=== PATIENT | male | born 1950 | race Caucasian/White ===

== ENCOUNTER 2016-07-20 16:51 | Emergency (ER) | payer BC, OTHER ==
[2016-07-20 17:06] VITALS: BP 139/67
[2016-07-20] MEDS ORDERED: Ondansetron 4 MG/2 ML SDV IVPUSH ONE (17:12)
[2016-07-20] MEDS ORDERED: Sodium Chloride 0.9% 10 ML Syringe FLUSH PRN (17:12)
[2016-07-20] MEDS ORDERED: Acetaminophen 325 MG Tab PO ONE (17:12)
[2016-07-20] MEDS ORDERED: Sodium Chloride 0.9% 1,000 ML IV ONE (17:12)
[2016-07-20] MEDS ORDERED: Sodium Chloride 0.9% 2.5 ML Syringe FLUSH PRN (17:12)
--- NOTE | 2016-07-20 17:16 | EDM.PDOC ---
ED HPI GENERAL MEDICAL PROBLEM - General Chief Complaint: Fever Stated Complaint: PT HAS FLU SYMPTOMS Time Seen by Provider: 07/20/16 17:00 - History of Present Illness INITIAL COMMENTS - FREE TEXT/NARRATIVE: HISTORY AND PHYSICAL: History of present illness: Patient is a 66-year-old male with a history of insulin requiring diabetes, hypertension and presents with complaints of 3 days of cough productive of phlegm which is white, bodyaches generalized malaise weakness and today one episode of vomiting. He has no shortness of breath or chest pain no runny nose or sore throat but feels like his throat is dry. There is no sinus congestion or drainage no flank pain or urinary issues and no abdominal pain or diarrhea. Patient has been eating and drinking but not his normal amount per his and he has been very fatigued and has exhibited generalized weakness. He is not lightheaded or dizzy and has not had any falls. Patient states he did not know that he had a fever until he came in to the ER. He has not felt chilly. Patient follows at [facility] but has not seen a physician for these symptoms but he did get his flu shot this year. Patient does not have any chronic pulmonary disease. Please note the patient states that his blood sugar was in the 270s last evening which is relatively high for him. Review of systems: As per history of present illness and below otherwise all systems reviewed and negative. Past medical history: As per history of present illness and as reviewed below otherwise noncontributory. Surgical history: As per history of present illness and as reviewed below otherwise noncontributory. Social history: No reported history of drug or alcohol abuse. Family history: As per history of present illness and as reviewed below otherwise noncontributory. Physical exam: General: Well-developed well-nourished male who has a loose cough heard in the ER but is nontoxic and speaking without breathlessness. Patient moves about the ED without distress. HEENT: Atraumatic, normocephalic, pupils reactive, negative for conjunctival pallor or scleral icterus, mucous membranes moist, throat clear, neck supple, nontender, trachea midline. No cervical adenopathy or nuchal rigidity Lungs: Clear to auscultation some diminished breath sounds in the bases but no work or breathing or sensory muscle use, breath sounds equal bilaterally, chest nontender. Heart: S1S2, regular, negative for clicks, rubs, or JVD. Abdomen: Soft, nondistended, nontender. Negative for masses or hepatosplenomegaly. Negative for costovertebral tenderness. Pelvis: Stable nontender. Genitourinary: Deferred. Rectal: Deferred. Extremities: Atraumatic, negative for cords or calf pain. Neurovascular unremarkable. No pedal edema Neuro: Awake, alert, oriented. Cranial nerves II through XII unremarkable. Cerebellum unremarkable. Motor and sensory unremarkable throughout. Exam nonfocal. Diagnostics: CBC CMP lactic acid influenza swab chest x-ray blood cultures if indicated Therapeutics: IV fluids Zofran O2 sat Discussed with patient and at bedside testing results and impress upon him the nature hydrated and try to eat to get strength. I also advised to followup at [facility] with his provider this week for reevaluation and further care. I will prescribe him a Z-Marcio which he states he has taken in the past for similar symptoms and has been successful. I advised him on reasons to return to the ER Impression: Upper respiratory tract illness, generalized weakness and fatigue Definitive disposition and diagnosis as appropriate pending reevaluation and review of above. - Related Data Allergies Allergy/AdvReac Type Severity Reaction Status Date / Time No Known Allergies Allergy Verified 07/20/16 17:03 Home Meds: Home Meds Insulin Aspart [NovoLOG] 8 unit SUBCUT TIDAC 07/20/16 [History] Lisinopril 12.5 mg PO DAILY 07/20/16 [History] Tresbia 30 units SUBCUT BEDTIME 07/20/16 [History] atorvaSTATin [Lipitor] 20 mg PO ONETIME 07/20/16 [History] sitaGLIPtin Phos/Metformin HCl [Janumet 50-1,000 MG] 1 each PO DAILY 07/20/16 [ History] Past Medical History Cardiovascular History: Reports: Hypertension Endocrine/Metabolic History: Reports: Diabetes, type II - Past Surgical History HEENT Surgical History: Reports: Tonsillectomy Social & Family History - Family History Family Medical History: Noncontributory - Tobacco Use Smoking Status *Q: Never Smoker - Recreational Drug Use Recreational Drug Use: No ED ROS GENERAL - Review of Systems Review Of Systems: ROS reveals no pertinent complaints other than HPI. ED EXAM, GENERAL - Physical Exam Exam: See Below (See dictation) Course - Vital Signs Last Recorded V/S: Last Vital Signs Temp 38.4 C H 07/20/16 17:03 Pulse 102 H 07/20/16 17:03 Resp 20 07/20/16 17:03 BP 139/67 07/20/16 17:03 Pulse Ox 97 07/20/16 17:37 - Orders/Labs/Meds Orders: Active Orders 24 hr Category Date Time Status Oxygen Therapy, ED [RC] ASDIRECTED Care 07/20/16 17:12 Active Pulse Oximetry [RC] ASDIRECTED Care 07/20/16 17:12 Active Chest 2V [CR] Stat Exams 07/20/16 17:12 Taken Sodium Chloride 0.9% [Saline Flush] Med 07/20/16 17:12 Active 10 ml FLUSH ASDIRECTED PRN Sodium Chloride 0.9% [Saline Flush] Med 07/20/16 17:12 Active 2.5 ml FLUSH ASDIRECTED PRN Saline Lock Insert [OM.PC] Stat Oth 07/20/16 17:12 Ordered Medication Orders Sodium Chloride (Saline Flush) 10 ml FLUSH ASDIRECTED PRN PRN Reason: Keep Vein Open Last Admin: 07/20/16 17:21 Dose: 10 ml Sodium Chloride (Saline Flush) 2.5 ml FLUSH ASDIRECTED PRN PRN Reason: Keep Vein Open Last Admin: 07/20/16 17:22 Dose: 2.5 ml Labs: Laboratory Tests 07/20/16 07/20/16 07/20/16 Range/Units 17:35 17:35 17:35 WBC 12.36 H (4.0-11.0) K/uL RBC 4.94 (4.50-5.90) M/uL Hgb 14.5 (13.0-17.0) g/dL Hct 42.9 (38.0-50.0) % MCV 86.8 (80.0-98.0) fL MCH 29.4 (27.0-32.0) pg MCHC 33.8 (31.0-37.0) g/dL RDW Std Deviation 43.3 (28.0-62.0) fl RDW Coeff of Eunice 14 (11.0-15.0) % Plt Count 179 (150-400) K/uL MPV 9.90 (7.40-12.00) fL Neut % (Auto) 84.9 H (48.0-80.0) % Lymph % (Auto) 7.0 L (16.0-40.0) % Chaves % (Auto) 7.8 (0.0-15.0) % Eos % (Auto) 0.2 (0.0-7.0) % Baso % (Auto) 0.1 (0.0-1.5) % Neut # 10.5 H (1.4-5.7) K/uL Lymph # 0.9 (0.6-2.4) K/uL Chaves # 1.0 H (0.0-0.8) K/uL Eos # 0.0 (0.0-0.7) K/uL Baso # 0.0 (0.0-0.1) K/uL Lactate 1.5 (0.20-2.00) mmol/L Sodium 135 L (136-146) mmol/L Potassium 4.2 (3.5-5.1) mmol/L Chloride 101 (98-110) mmol/L Carbon Dioxide 23 (21-31) mmol/L BUN 20 (6.0-23.0) mg/dL Creatinine 1.3 (0.6-1.5) mg/dL Est Cr Clr Drug Dosing 66.74 mL/min Estimated GFR (MDRD) 55.6 ml/min Glucose 239 H (60-110) mg/dL Calcium 8.9 (8.8-10.8) mg/dL Total Bilirubin 1.1 (0.1-1.5) mg/dL AST 20 (5-40) IU/L ALT 14 (8-54) IU/L Alkaline Phosphatase 87 (40-150) Total Protein 7.2 (6.0-8.0) g/dL Albumin 3.6 (3.4-4.8) g/dL Globulin 3.6 H (2.0-3.5) g/dL Albumin/Globulin Ratio 1.0 L (1.3-2.8) Meds: Medications Generic Name Dose Route Start Last Admin Trade Name Freq PRN Reason Stop Dose Admin Sodium Chloride 10 ml 07/20/16 17:12 07/20/16 17:21 Saline Flush FLUSH 10 ml ASDIRECTED PRN Administration Keep Vein Open Sodium Chloride 2.5 ml 07/20/16 17:12 07/20/16 17:22 Saline Flush FLUSH 2.5 ml ASDIRECTED PRN Administration Keep Vein Open Discontinued Medications Generic Name Dose Route Start Last Admin Trade Name Divina PRN Reason Stop Dose Admin Acetaminophen 650 mg 07/20/16 17:12 07/20/16 17:27 Tylenol PO 07/20/16 17:13 650 mg NOW ONE Administration Sodium Chloride 1,000 mls @ 999 mls/hr 07/20/16 17:12 07/20/16 17:21 Normal Saline IV 07/20/16 18:12 999 mls/hr STAT ONE Administration Ondansetron HCl 4 mg 07/20/16 17:12 07/20/16 17:28 Zofran IVPUSH 07/20/16 17:13 4 mg ONETIME ONE Administration Departure - Departure Time of Disposition: 18:23 Disposition: Home, Self-Care 01 Condition: good Clinical Impression: Upper respiratory infection Qualifiers: URI type: unspecified URI Qualified Code(s): J06.9 - Acute upper respiratory infection, unspecified Fever Qualifiers: Fever type: unspecified Qualified Code(s): R50.9 - Fever, unspecified Forms: ED Department Discharge Additional Instructions: The following information is given to patients seen in the emergency department who are being discharged to home. This information is to outline your options for follow-up care. We provide all patients seen in our emergency department with a follow-up referral. The need for follow-up, as well as the timing and circumstances, are variable depending upon the specifics of your emergency department visit. If you don't have a primary care physician on staff, we will provide you with a referral. We always advise you to contact your personal physician following an emergency department visit to inform them of the circumstance of the visit and for follow-up with them and/or the need for any referrals to a consulting specialist. The emergency department will also refer you to a specialist when appropriate. This referral assures that you have the opportunity for followup care with a specialist. All of these measure are taken in an effort to provide you with optimal care, which includes your followup. Under all circumstances we always encourage you to contact your private physician who remains a resource for coordinating your care. When calling for followup care, please make the office aware that this follow-up is from your recent emergency room visit. If for any reason you are refused follow-up, please contact the [facility] emergency department at and ask to speak to the emergency department charge nurse. [facility] [address] [place] [address] [facility] Primary care- Internal Medicine and Family [facility] [address] [place] [address] Push hydration as we discussed and take Tylenol or ibuprofen for fever and bodyaches. These take Z-Marcio as directed until finished. Please call and followup with your provider at [facility] or one of our clinic physicians the next several days for further evaluation and care. Return to ER as needed and as discussed - My Orders Last 24 Hours: My Active Orders 07/20/16 17:12 Oxygen Therapy, ED [RC] ASDIRECTED Pulse Oximetry [RC] ASDIRECTED Chest 2V [CR] Stat Sodium Chloride 0.9% [Saline Flush] 10 ml FLUSH ASDIRECTED PRN Sodium Chloride 0.9% [Saline Flush] 2.5 ml FLUSH ASDIRECTED PRN Saline Lock Insert [OM.PC] Stat - Assessment/Plan Last 24 Hours: My Active Orders 07/20/16 17:12 Oxygen Therapy, ED [RC] ASDIRECTED Pulse Oximetry [RC] ASDIRECTED Chest 2V [CR] Stat Sodium Chloride 0.9% [Saline Flush] 10 ml FLUSH ASDIRECTED PRN Sodium Chloride 0.9% [Saline Flush] 2.5 ml FLUSH ASDIRECTED PRN Saline Lock Insert [OM.PC] Stat
--- NOTE | 2016-07-21 17:14 | CR ---
EXAM DATE: 07/20/16 PATIENT'S AGE: 66 Patient: KRISTA TENA Facility: [place], [place] Site . Site : 1950 Study: XRay Chest [id number]/26/2017 5:59:22 PM Ordering Physician: Chela Saldana Final Report: INDICATION: Cough. Flu-like symptoms since . Technique: PA and lateral chest x-ray 3 views. Findings: Minimal peribronchial cuffing in the right infrahilar region suggesting mild bronchial inflammation. Lungs clear without infiltrate. Heart size normal. Old left clavicular fracture. Chest otherwise negative. Dictated by Dustin Tinoco MD @ Jul 20 2016 6:15PM (Electronic Signature) Report Signed by Proxy and Original Signed Document filed in the Medical Record. MTDD
== END 2016-07-20 18:40 | disposition home or self-care (01) ==
LOC: MW.ED 16:51
DX: J06.9 Acute upper respiratory infection, unspecified (principal); I10 Essential (primary) hypertension; E11.9 Type 2 diabetes mellitus without complications; Z79.4 Long term (current) use of insulin; Z79.899 Other long term (current) drug therapy
CPT/HCPCS: 36415; 71020; 80053; 83605; 85025; 87804; 96361; 96374; 99283; A9270; J2405; J7040; 99284

== ENCOUNTER 2019-07-19 10:55 | Day surgery (SDC) | payer MEDICARE, BC ==
[~2019-07-19 10:55] MED LIST: Betamethasone Acetate/Betamethasone Sod Phosphate 30 MG/5 ML MDV EPIDUR ONE; Iopamidol 200-M 10 ML vial ITHECAL ONE; Lidocaine 2% 5 ML SDV INJECT ONE; Ropivacaine 0.5% 5 MG/ML 30 ML SDV INJECT ONE
[2019-07-19] MEDS ORDERED: Iopamidol 200-M 10 ML vial ITHECAL ONE (12:00)
[2019-07-19] MEDS ORDERED: Lidocaine 2% 5 ML SDV INJECT ONE (12:00)
[2019-07-19] MEDS ORDERED: Ropivacaine 0.5% 5 MG/ML 30 ML SDV INJECT ONE (12:00)
[2019-07-19] MEDS ORDERED: Betamethasone Acetate/Betamethasone Sod Phosphate 30 MG/5 ML MDV EPIDUR ONE (12:00)
--- NOTE | 2019-07-19 20:01 | OR ---
SURGEON: Rosa Snow D.O. DATE OF PROCEDURE: 07/19/2019 PRIMARY SURGEON: Rosa Snow D.O. PET NUTRITION SPECIALIST: OR staff present: 1. Naz Rivera RN. 2. Rico Naylor RN. 3. Tevin Lopez RT. WOUND CLASS: I. PREOPERATIVE DIAGNOSES: 1. Failed back surgery syndrome. 2. Left L4-5 radiculopathy. 3. Left lower extremity neuropathic pain. POSTOPERATIVE DIAGNOSES: 1. Failed back surgery syndrome. 2. Left L4-5 radiculopathy. 3. Left lower extremity neuropathic pain. PROCEDURE PERFORMED: 1. Left transforaminal epidural steroid injection at L4. 2. Fluoroscopic guidance for needle placement. 3. Local with oral Valium for sedation. SCREENING QUESTIONS: The patient answered "no" to all of the following questions: 1. Are you allergic to iodine, Betadine or latex? 2. Do you have a bleeding disorder? 3. Do you have any joint replacements, heart valve replacements, or a pacemaker? 4. Are you allergic to anti-inflammatories or blood thinners? 5. Do you have any current local or systemic infections? MEDICAL NECESSITY: This is a patient with a history of chronic low back pain and lower extremity radicular pain in the above dermatomal pattern that comes in for the above diagnostic and therapeutic procedure. Pertinent positives and negatives for this suspected disease process along with the diagnostic findings and testing are in the patient's history and physical exam. The most salient feature includes radicular pain in the above dermatomal pattern. The patient had failed attempts at conservative therapy including physical therapy, nonsteroidal anti- inflammatory drugs, and other medications. No contraindications to perform this procedure including medical, no bleeding disorders or infections, no psychological, no antisocial personality disorder or active addiction disorder. There are no work-related issues, and, in general, the patient does not have any history of multiple prior interventions, surgeries or nerve blocks which have failed to return the patient to function. The patient's other symptoms to be treated include numbness, paresthesia, dysesthesia or hypoesthesia referred into the left lower extremity or any weakness in the involved myotome. This procedure is being performed in accordance with national guidelines as written by the [employer] (BEN). DESCRIPTION OF PROCEDURE: The patient had the procedure thoroughly explained including risks, benefits and alternatives. Consent was signed in my clinic indicating understanding and willingness to proceed. The patient presented to [facility] where the patient was escorted to the dressing room to disrobe and change into a hospital gown. Preoperative vital signs were taken and stable. The patient reported that Valium was taken prior to the procedure. The patient was brought to the procedure room and placed in the prone position on the table. A pillow was placed under the abdomen in order to flatten the lumbar lordosis. The back was prepped with ChloraPrep and sterilely draped. All personnel in the operating room were dressed in appropriate attire including surgical scrubs, head and shoe covers. This was to ensure sterility while in the treatment room. During the time fluoroscopy was in use, all personnel in the operating room wore lead carter with thyroid collars. Sterile technique was used during the procedure. The fluoroscope was placed for the L4 transforaminal epidural steroid injection. There was no sign of infection at the skin site for needle insertion. The skin was anesthetized with 2% lidocaine with a 27 gauge 1-1/2 inch needle. Then a 22 gauge 3-1/2 inch spinal needle, advanced to the L4. Under direct fluoroscopic guidance needle position was verified in three views; AP, oblique and lateral, with 0.2 cubic centimeters increments of Isovue-200 dye. No intravascular flow pattern was observed under live fluoroscopy. Then 12 milligrams of Celestone was slowly injected after negative aspiration of heme, cerebrospinal fluid and no paresthesias were noted. The needle was cleared prior to removal from the skin. No adverse reactions were noted. The patient was brought to the recovery room awake and in good condition by my staff. The patient was monitored and discharge instructions were given after a brief stay in the recovery area. Both oral and written discharge and follow up instructions were given. The patient will follow up in the clinic in 3-4 weeks post procedure to evaluate the efficacy. The patient verbalized understanding including understanding of those signs and symptoms that would require emergency care and knows how to contact the office if there are any problems or questions in the meantime. PREOPERATIVE PAIN: 3 to 6 out of 10. POSTOPERATIVE PAIN: 0/10. FOLLOWUP: In the Pain Clinic in 3 weeks. HOGLCHR / MODL /[id number]
== END 2019-07-19 13:29 | disposition home or self-care (01) ==
LOC: MW.SDS 10:55
PROVIDERS: ATTEND Anesthesiology
DX: G89.29 Other chronic pain (principal); M51.16 Intervertebral disc disorders with radiculopathy, lumbar region; M96.1 Postlaminectomy syndrome, not elsewhere classified; M48.061 Spinal stenosis, lumbar region without neurogenic claudication; M47.26 Other spondylosis with radiculopathy, lumbar region; M79.18 Myalgia, other site; I10 Essential (primary) hypertension; E78.00 Pure hypercholesterolemia, unspecified; E11.42 Type 2 diabetes mellitus with diabetic polyneuropathy; Z79.82 Long term (current) use of aspirin; Z79.4 Long term (current) use of insulin; Z79.899 Other long term (current) drug therapy
CPT/HCPCS: 64483; J0702; 62323

== ENCOUNTER 2024-04-12 06:27 | Day surgery (SDC) | payer MEDICARE, BC ==
[~2024-04-12 06:27] MED LIST changes: -Betamethasone Acetate/Betamethasone Sod Phosphate 30 MG/5 ML MDV EPIDUR ONE; -Iopamidol 200-M 10 ML vial ITHECAL ONE; -Lidocaine 2% 5 ML SDV INJECT ONE; -Ropivacaine 0.5% 5 MG/ML 30 ML SDV INJECT ONE; +Sodium Chloride 0.9% 10 ML Syringe FLUSH PRN; +Sodium Chloride 0.9% 2.5 ML Syringe FLUSH PRN; +Sodium Chloride 0.9% 20 ML SDV IV PRN; +ceFAZolin 2 GM in Sodium Chloride 0.9% 50 ML IV ONE
[2024-04-12] MEDS ORDERED: Water For Injection, Sterile 20 ML ONE (07:14)
[2024-04-12] MEDS ORDERED: dexmedeTOMIDine HCl 200 MCG/2 ML SDV ONE (07:14)
[2024-04-12] MEDS ORDERED: fentaNYL 100 MCG/2 ML SDV ONE (07:15)
[2024-04-12] MEDS ORDERED: Bupivacaine 0.5% 30 ML SDV ONE (07:24)
[2024-04-12] MEDS ORDERED: Propofol 200 MG/20 ML SDV ONE (07:24)
[2024-04-12] MEDS ORDERED: Lidocaine 1% 20 ML MDV ONE (07:25)
[2024-04-12] MEDS: Lactated Ringers 1,000 ML IV SCH (07:36)
[2024-04-12 07:40] LABS: A/G RATIO 0.8 (0.9-1.6); ALBUMIN 3.2 g/dL (3.4-5.0); BILIRUBIN TOTAL 0.5 mg/dL (0.2-1.0); CALCIUM 9.1 mg/dL (8.5-10.1); CARBON DIOXIDE,CO2 29.3 mmol/L (21.0-32.0); CREATININE 1.4 mg/dL (0.8-1.3); EST CRCL DRUG DOSING (CG) 53.9 mL/min; POTASSIUM,K 4.2 mmol/L (3.5-5.1); PROTEIN TOTAL,TP 7.1 g/dL (6.4-8.2)
[2024-04-12] MEDS ORDERED: HYDROmorphone 1 MG/ML Syringe IVPUSH PRN (07:44)
[2024-04-12] MEDS ORDERED: Phenylephrine HCl In 0.9% NaCl 1 MG/10 ML Syringe IVPUSH PRN (07:44)
[2024-04-12] MEDS ORDERED: Metoclopramide 10 MG/2 ML SDV IVPUSH PRN (07:44)
[2024-04-12] MEDS ORDERED: Morphine 2 MG/ML SYRINGE IVPUSH PRN (07:44)
[2024-04-12] MEDS ORDERED: Naloxone 0.4 MG/ML SDV IVPUSH PRN (07:44)
[2024-04-12] MEDS ORDERED: Ondansetron 4 MG/2 ML SDV IVPUSH PRN (07:44)
[2024-04-12] MEDS ORDERED: fentaNYL 50 MCG/ML SDV IVPUSH PRN (07:44)
[2024-04-12] MEDS ORDERED: Albuterol 0.083% 2.5 MG/3 ML Neb Soln NEB PRN (07:44)
[2024-04-12 08:21] LABS: BASOPHILS ABSOLUTE AUTO 0.06 K/uL (0.00-0.20); BASOPHILS PERCENT AUTO 1.1 % (0.0-1.0); EOSINOPHILS PERCENT AUTO 9.1 % (0.0-6.0); HEMATOCRIT 37.7 % (42.0-52.0); HEMOGLOBIN 12.6 g/dL (14.0-18.0); IMMATURE GRAN ABSOLUTE AUTO 0.03 K/uL (0.00-0.05); IMMATURE GRAN PERCENT AUTO 0.5 % (0.0-0.4); LYMPHOCYTES ABSOLUTE AUTO 1.75 K/uL (1.00-4.80); LYMPHOCYTES PERCENT AUTO 31.8 % (24.0-44.0); MEAN CORPUSCULAR HEMOGLOBIN 30.9 pg (28.0-32.0); MEAN CORPUSCULAR HGB CONC 33.4 g/dL (32.0-36.0); MEAN CORPUSCULAR VOLUME 92.4 fL (83.0-99.0); MEAN PLATELET VOLUME 10.6 fL (9.4-12.4); MONOCYTES ABSOLUTE AUTO 0.52 K/uL (0.00-0.80); MONOCYTES PERCENT AUTO 9.5 % (0.0-8.0); NEUTROPHILS ABSOLUTE AUTO 2.64 K/uL (1.80-7.70); PLATELET COUNT,PLT 223 K/uL (150-400); RED BLOOD CELL COUNT 4.08 M/uL (4.52-5.90)
[2024-04-12] MEDS ORDERED: ePHEDrine 50 MG/ML SDV ONE (08:30)
[2024-04-12] MEDS ORDERED: Ondansetron 4 MG/2 ML SDV ONE (08:48)
[2024-04-12] MEDS ORDERED: Ketorolac 30 MG/ML SDV ONE (08:48)
[2024-04-12] MEDS ORDERED: Dexamethasone 4 MG/ML 5 ML MDV ONE (08:48)
[2024-04-12] MEDS ORDERED: ceFAZolin 2 GM Vial ONE (08:53)
[2024-04-12 11:10] VITALS: BP 134/50; PULSE 72
== END 2024-04-12 10:55 | disposition home or self-care (01) ==
LOC: MW.SDS 06:27
PROVIDERS: ATTEND Surgery
DX: C61 Malignant neoplasm of prostate (principal); J93.9 Pneumothorax, unspecified; I10 Essential (primary) hypertension; E78.00 Pure hypercholesterolemia, unspecified; E11.9 Type 2 diabetes mellitus without complications; E66.9 Obesity, unspecified; Z68.36 Body mass index [BMI] 36.0-36.9, adult; Z79.4 Long term (current) use of insulin; Z79.84 Long term (current) use of oral hypoglycemic drugs; Z79.82 Long term (current) use of aspirin; Z79.899 Other long term (current) drug therapy
CPT/HCPCS: 36415; 36561; 71045; 76000; 80053; 82947; 85025; J0665; J0690; J1100; J1642; J1885; J2405; J2704; J3010; J7120; C1788; J3490